=== PATIENT | female | born 1970 | race African-American/Black ===

== ENCOUNTER 2018-03-13 11:38 | Emergency (ER) | payer OTHER ==
[~2018-03-13] VITALS: Ht 167.6 cm; Wt 83.0 kg
[~2018-03-13 11:38] MED LIST: MULTIVITAMINS1 EAC7; NAPROSYN500 MG PO; VITAMIN C500 MG
[2018-03-13] MEDS ORDERED: HYDROCODONE-AP1 EAC6 PO (12:06)
[2018-03-13] MEDS ORDERED: FLEXERIL PO (12:06)
[2018-03-13] MEDS ORDERED: ZOFRAN ODT4 MG PO (13:15)
[2018-03-13 13:48] VITALS: BP 118/75
== END 2018-03-13 13:49 | disposition home or self-care (01) ==
LOC: ER 11:38
DX: S16.1XXA Strain of muscle, fascia and tendon at neck level, initial encounter (principal); S06.0X0A Concussion without loss of consciousness, initial encounter; Z88.8 Allergy status to other drugs, medicaments and biological substances; V89.2XXA Person injured in unspecified motor-vehicle accident, traffic, initial encounter; Y93.89 Activity, other specified; Y92.89 Other specified places as the place of occurrence of the external cause; Y99.8 Other external cause status

== ENCOUNTER 2018-03-17 14:21 | Emergency (ER) | payer OTHER ==
[~2018-03-17] VITALS: Ht 165.1 cm; Wt 82.6 kg
[~2018-03-17 14:21] MED LIST changes: +FLEXERIL PO; +HYDROCODONE-AP1 EAC6 PO; +ZOFRAN ODT4 MG PO
[2018-03-17 16:28] LABS: CALCIUM 9.4 mg/dL (8.5-10.1); CREATININE 0.9 mg/dL (0.6-1.0)
[2018-03-17 18:11] VITALS: BP 134/88
== END 2018-03-17 18:13 | disposition home or self-care (01) ==
LOC: ER 14:21
PROVIDERS: Emergency Medicine
DX: F07.81 Postconcussional syndrome (principal); Z90.711 Acquired absence of uterus with remaining cervical stump; Z88.8 Allergy status to other drugs, medicaments and biological substances